=== PATIENT | female | born 1950 | race Caucasian/White ===

== ENCOUNTER 2017-03-10 14:14 | Inpatient (IN) | payer MEDICARE, OTHER ==
[~2017-03-10] VITALS: Ht 170.2 cm; Wt 86.1 kg
[~2017-03-10 14:14] MED LIST: ADVAIR DISKUS1 DS1 IH; CHILDREN'S CLEA10 MG PO; FISH OIL1 IU PO; IPRATROPIUM BROM3 M1 IH; NEURONTIN300 M1 PO; OS-CAL 500+D31 EACH PO; PROAIR HFA0.09 MG/AC IH; RT SPIRIVA INH18 MCG IH
[2017-03-10] MEDS ORDERED: PANTOPRAZOLE SO40 MG PO (14:18)
[2017-03-10] MEDS ORDERED: LEVOFLOXACIN500 M1 PO (14:19)
[2017-03-10 14:31] VITALS: BP 157/93
[2017-03-10 14:48] VITALS: BP 157/93
[2017-03-10 18:11] VITALS: BP 147/92
[2017-03-10 18:30] VITALS: BP 147/92
[2017-03-11 06:22] VITALS: BP 159/90
[2017-03-11 15:10] LABS: HEMATOCRIT 33.7 % (37.0-47.0); HEMOGLOBIN 11.2 g/dL (12.5-16.0); MEAN CELL VOLUME 88 fl (78-100); MEAN CORPUSCULAR HEMOGLOBIN 29 pg (27-31); MEAN CORPUSCULAR HGB CONC 33 g/dL (33-37); MEAN PLATELET VOLUME 8.9 fl (7.4-10.4); PLATELET COUNT 466 K/mm3 (130-400); RED BLOOD COUNT 3.85 M/mm3 (4.10-5.30); RED CELL DISTRIBUTION WIDTH 13.7 % (11.5-14.5)
[2017-03-11 15:22] LABS: BUN/CREATININE RATIO 26.6 (6.0-26.0); CALCIUM 8.8 mg/dL (8.4-10.2); POTASSIUM 4.7 mmol/L (3.6-5.0)
[2017-03-11 15:30] VITALS: BP 137/93
[2017-03-11 15:46] LABS: NEUTROPHILS 79 % (42-75); WHITE BLOOD COUNT 25.5 K/mm3 (4.8-10.8)
[2017-03-11 15:47] LABS: LYMPHOCYTE 17 % (20-51); MONOCYTE 4 % (3-10)
[2017-03-11 15:48] LABS: D-DIMER 5.78 mg/L FEU (0.15-0.50)
[2017-03-11 18:07] VITALS: BP 151/43
[2017-03-11 23:10] VITALS: BP 141/73
[2017-03-12 03:04] VITALS: BP 134/86
[2017-03-12 06:25] VITALS: BP 118/60; BP 144/91
[2017-03-12 07:03] LABS: HEMATOCRIT 33.5 % (37.0-47.0); HEMOGLOBIN 10.9 g/dL (12.5-16.0); MEAN CELL VOLUME 89 fl (78-100); MEAN CORPUSCULAR HEMOGLOBIN 29 pg (27-31); MEAN CORPUSCULAR HGB CONC 33 g/dL (33-37); MEAN PLATELET VOLUME 8.7 fl (7.4-10.4); RED BLOOD COUNT 3.78 M/mm3 (4.10-5.30); WHITE BLOOD COUNT 19.7 K/mm3 (4.8-10.8)
[2017-03-12 07:18] LABS: LYMPHOCYTE 14 % (20-51); NEUTROPHILS 84 % (42-75); PLATELET COUNT 504 K/mm3 (130-400)
[2017-03-12 07:19] LABS: METAMYELOCYTE 1 % (0-0); MONOCYTE 1 % (3-10); TARGET CELLS 1+
[2017-03-12 10:47] VITALS: BP 147/91
[2017-03-12 15:12] VITALS: BP 145/86
[2017-03-12 18:45] VITALS: BP 129/79
[2017-03-12 23:52] VITALS: BP 136/88
[2017-03-13 03:54] VITALS: BP 152/100
[2017-03-13 06:23] VITALS: BP 138/82
[2017-03-13 11:07] VITALS: BP 118/73
[2017-03-13 15:00] VITALS: BP 145/90
[2017-03-13 18:06] VITALS: BP 110/65
[2017-03-13 23:00] VITALS: BP 113/68
[2017-03-14 03:10] VITALS: BP 117/77
[2017-03-14 06:30] VITALS: BP 130/80
[2017-03-14 10:55] VITALS: BP 115/69
[2017-03-14 15:08] VITALS: BP 104/60
[2017-03-14 18:14] VITALS: BP 105/52
[2017-03-14 23:06] VITALS: BP 114/67
[2017-03-15 03:02] VITALS: BP 125/79
[2017-03-15 06:25] VITALS: BP 125/70
[2017-03-15 06:52] LABS: HEMATOCRIT 29.8 % (37.0-47.0); HEMOGLOBIN 9.8 g/dL (12.5-16.0); MEAN CELL VOLUME 88 fl (78-100); MEAN CORPUSCULAR HEMOGLOBIN 29 pg (27-31); MEAN CORPUSCULAR HGB CONC 33 g/dL (33-37); MEAN PLATELET VOLUME 8.4 fl (7.4-10.4); RED BLOOD COUNT 3.37 M/mm3 (4.10-5.30); RED CELL DISTRIBUTION WIDTH 14.2 % (11.5-14.5); WHITE BLOOD COUNT 10.8 K/mm3 (4.8-10.8)
[2017-03-15 07:04] LABS: ALBUMIN 2.7 g/dL (3.5-5.0); BUN/CREATININE RATIO 31.5 (6.0-26.0); POTASSIUM 4.3 mmol/L (3.6-5.0); TOTAL BILIRUBIN 0.5 mg/dL (0.2-1.3); TOTAL PROTEIN 5.5 g/dL (6.3-8.2)
[2017-03-15 07:09] LABS: PLATELET COUNT 556 K/mm3 (130-400)
[2017-03-15 07:11] LABS: BAND 2 % (0-10); LYMPHOCYTE 5 % (20-51); MONOCYTE 4 % (3-10); NEUTROPHILS 89 % (42-75)
[2017-03-15 11:01] VITALS: BP 131/82
[2017-03-15 15:48] VITALS: BP 109/68
[2017-03-15 18:21] VITALS: BP 111/62
[2017-03-15 23:30] VITALS: BP 109/72
[2017-03-16 03:25] VITALS: BP 127/72
[2017-03-16 06:26] VITALS: BP 126/74
[2017-03-16 11:11] VITALS: BP 111/67
[2017-03-16 15:00] VITALS: BP 102/58
[2017-03-16 18:08] VITALS: BP 133/77
[2017-03-16 22:30] VITALS: BP 95/60
[2017-03-17 03:05] VITALS: BP 121/82
[2017-03-17 06:14] VITALS: BP 144/90
[2017-03-17 11:08] VITALS: BP 109/63
[2017-03-17 14:57] VITALS: BP 105/59
[2017-03-17 17:41] VITALS: BP 105/51
[2017-03-17 23:15] VITALS: BP 111/65
[2017-03-18 03:07] VITALS: BP 111/72
[2017-03-18 06:10] VITALS: BP 115/71
[2017-03-18 11:07] VITALS: BP 128/78
[2017-03-18 13:19] LABS: BUN/CREATININE RATIO 29.7 (6.0-26.0); CALCIUM 7.9 mg/dL (8.4-10.2); POTASSIUM 4.3 mmol/L (3.6-5.0)
[2017-03-18 15:07] VITALS: BP 113/66
[2017-03-18 18:56] VITALS: BP 104/57
[2017-03-19 06:28] VITALS: BP 117/72
[2017-03-19 07:00] VITALS: BP 117/72
[2017-03-19 18:02] VITALS: BP 101/58
[2017-03-20 06:24] VITALS: BP 144/83
[2017-03-20 12:26] LABS: EOS # 0.1 (0.04-0.40); EOS % 0.3 % (1.0-5.0); HEMATOCRIT 32.6 % (37.0-47.0); HEMOGLOBIN 10.5 g/dL (12.5-16.0); LYMPH# 2.3 (1.50-4.00); MEAN CELL VOLUME 91 fl (78-100); MEAN CORPUSCULAR HEMOGLOBIN 29 pg (27-31); MEAN CORPUSCULAR HGB CONC 32 g/dL (33-37); MEAN PLATELET VOLUME 8.9 fl (7.4-10.4); MONO # 1.2 (0.20-0.80); RED BLOOD COUNT 3.59 M/mm3 (4.10-5.30); RED CELL DISTRIBUTION WIDTH 14.9 % (11.5-14.5); WHITE BLOOD COUNT 17.5 K/mm3 (4.8-10.8)
[2017-03-20 12:31] LABS: NEU # 13.8 (1.40-6.50); PLATELET COUNT 559 K/mm3 (130-400)
[2017-03-20 12:43] LABS: BUN/CREATININE RATIO 24.5 (6.0-26.0); CALCIUM 8.5 mg/dL (8.4-10.2); POTASSIUM 4.1 mmol/L (3.6-5.0)
[2017-03-20 18:56] VITALS: BP 97/54
[2017-03-21 06:47] VITALS: BP 117/75
[2017-03-21 18:18] VITALS: BP 102/53
[2017-03-22 06:35] VITALS: BP 128/59
[2017-03-22 18:38] VITALS: BP 98/63
[2017-03-23 06:04] VITALS: BP 115/75
[2017-03-23 18:42] VITALS: BP 101/56
[2017-03-24 06:30] VITALS: BP 120/78
[2017-03-24 18:18] VITALS: BP 96/60
[2017-03-25 06:22] VITALS: BP 122/75
[2017-03-25 12:11] LABS: HEMOGLOBIN 9.7 g/dL (12.5-16.0); MEAN CELL VOLUME 92 fl (78-100); MEAN CORPUSCULAR HEMOGLOBIN 29 pg (27-31); MEAN CORPUSCULAR HGB CONC 31 g/dL (33-37); MEAN PLATELET VOLUME 9.4 fl (7.4-10.4); PLATELET COUNT 305 K/mm3 (130-400); RED BLOOD COUNT 3.37 M/mm3 (4.10-5.30); RED CELL DISTRIBUTION WIDTH 15.3 % (11.5-14.5); WHITE BLOOD COUNT 12.4 K/mm3 (4.8-10.8)
[2017-03-25 12:25] LABS: BUN/CREATININE RATIO 24.6 (6.0-26.0); CALCIUM 8.5 mg/dL (8.4-10.2)
[2017-03-25 12:52] LABS: LYMPHOCYTE 8 % (20-51); MONOCYTE 6 % (3-10); NEUTROPHILS 85 % (42-75)
[2017-03-25 17:55] VITALS: BP 90/50
[2017-03-26 06:24] VITALS: BP 131/83
[2017-03-26] MEDS ORDERED: PREDNISONE10 MG PO (12:44)
[2017-03-26 18:38] VITALS: BP 117/63
[2017-03-27 06:25] VITALS: BP 116/75
[2017-03-27 15:51] VITALS: BP 100/60
== END 2017-03-27 15:59 | disposition home health service (06) | DRG 195 ==
LOC: MED/SURG 14:14
PROVIDERS: Nurse Practitioner Family; Nurse Practitioner Primary Care; Physician Assistant; ADMIT Family Medicine
PROC: 02HV33Z Insertion of Infusion Device into Superior Vena Cava, Percutaneous Approach (ICD-10-PCS; principal; 2017-03-12)
DX: J18.9 Pneumonia, unspecified organism (principal); G62.9 Polyneuropathy, unspecified; R09.02 Hypoxemia; K44.9 Diaphragmatic hernia without obstruction or gangrene; R53.83 Other fatigue; J43.9 Emphysema, unspecified; Z23 Encounter for immunization
CPT/HCPCS: A4500; J1644; J1650; J1940; J2543; J2930; J3370; J7030; J7050; J7512; Q9967

== ENCOUNTER → 2017-04-02 | Outpatient (CLI) | payer MEDICARE, OTHER ==
[~2017-04-02] VITALS: Ht 170.2 cm; Wt 86.1 kg
[~2017-04-02] MED LIST changes: +LEVOFLOXACIN500 M1 PO; +PANTOPRAZOLE SO40 MG PO; +PREDNISONE10 MG PO
[2017-04-02 11:20] VITALS: BP 153/87
== END ==
LOC: AMSURD 11:15
DX: Z45.2 Encounter for adjustment and management of vascular access device (principal); J18.9 Pneumonia, unspecified organism

== ENCOUNTER 2017-04-13 21:43 | Emergency (ER) | payer OTHER ==
[~2017-04-13] VITALS: Ht 170.2 cm; Wt 84.5 kg
[2017-04-13] MEDS ORDERED: FLONASE ALLERG9.9 ML NS (22:05)
[2017-04-13] MEDS ORDERED: PREDNISONE20 M1 PO (22:23)
[2017-04-13 22:31] VITALS: BP 110/74
== END 2017-04-13 22:31 | disposition home or self-care (01) ==
LOC: ED 21:43
DX: L50.9 Urticaria, unspecified (principal); J44.9 Chronic obstructive pulmonary disease, unspecified; Z87.891 Personal history of nicotine dependence; Z87.01 Personal history of pneumonia (recurrent); Z88.1 Allergy status to other antibiotic agents; Z88.2 Allergy status to sulfonamides

== ENCOUNTER → 2017-08-24 | Outpatient (CLI) | payer MEDICARE, BC ==
[~2017-08-24] VITALS: Ht 170.2 cm; Wt 81.4 kg
[~2017-08-24] MED LIST changes: +AZITHROMYCIN500 M2 PO; +FLONASE ALLERG9.9 ML NS; +PREDNISONE20 M1 PO
[2017-08-24 19:25] VITALS: BP 143/86
--- NOTE | 2017-08-24 19:35 | NUR ---
Pt returns to clinic to see provider post EKG as planned (returns per w/c). EKG sent w/ pt.
== END ==
LOC: AMSURD 18:58
DX: R07.9 Chest pain, unspecified (principal)

== ENCOUNTER 2018-09-14 16:53 | Emergency (ER) | payer MEDICARE, BC ==
[~2018-09-14] VITALS: Ht 167.6 cm; Wt 84.1 kg
[2018-09-14] MEDS ORDERED: LYRICA100 MG PO (17:15)
[2018-09-14 17:16] LABS: EOS # 0.1 (0.04-0.40); EOS % 1.1 % (1.0-5.0); HEMATOCRIT 42.2 % (37.0-47.0); LYMPH# 1.9 (1.50-4.00); MEAN CELL VOLUME 92 fl (78-100); MEAN CORPUSCULAR HEMOGLOBIN 28 pg (27-31); MEAN CORPUSCULAR HGB CONC 31 g/dL (33-37); MEAN PLATELET VOLUME 10.2 fl (7.4-10.4); MONO # 0.9 (0.20-0.80); NEU # 8.8 (1.40-6.50); PLATELET COUNT 330 K/mm3 (130-400); RED CELL DISTRIBUTION WIDTH 14.3 % (11.5-14.5); WHITE BLOOD COUNT 11.8 K/mm3 (4.8-10.8)
[2018-09-14] MEDS ORDERED: PERFOROMIS20 MCG/21 IH (17:17)
[2018-09-14] MEDS ORDERED: QUALITY CHOICE600 M1 PO (17:18)
[2018-09-14] MEDS ORDERED: ONCE DAILY1 TA1 PO (17:19)
[2018-09-14 17:43] LABS: ALBUMIN 4.1 g/dL (3.4-4.8); ALT/SGPT 17 U/L (0-55); AST-SGOT 25 U/L (5-34); CALCIUM 9.7 mg/dL (8.4-10.2); CARBON DIOXIDE 23 mmol/L (23-31); GLUCOSE 113 mg/dL (65-105); SODIUM 138 mmol/L (136-145); TOTAL BILIRUBIN 0.3 mg/dL (0.2-1.2); TOTAL PROTEIN 7.5 g/dL (6.2-8.1)
[2018-09-14 17:45] LABS: TROPONIN-I < 0.03 ng/mL (<0.030)
[2018-09-14] MEDS ORDERED: LEVAQUIN 5500 MG/TA1 PO (18:32)
[2018-09-14] MEDS ORDERED: PREDNISONE20 M1 PO (18:32)
[2018-09-14 19:26] VITALS: BP 147/90
== END 2018-09-14 19:26 | disposition home or self-care (01) ==
LOC: ED 16:53
PROVIDERS: Family Medicine
DX: J44.1 Chronic obstructive pulmonary disease with (acute) exacerbation (principal); K21.9 Gastro-esophageal reflux disease without esophagitis; G62.9 Polyneuropathy, unspecified; Z79.51 Long term (current) use of inhaled steroids; Z87.01 Personal history of pneumonia (recurrent)
CPT/HCPCS: J7512

== ENCOUNTER 2018-09-14 20:40 | Inpatient (IN) | payer MEDICARE, BC ==
[~2018-09-14] VITALS: Ht 167.6 cm; Wt 84.8 kg
[~2018-09-14 20:40] MED LIST changes: +LEVAQUIN 5500 MG/TA1 PO; +LYRICA100 MG PO; +ONCE DAILY1 TA1 PO; +PERFOROMIS20 MCG/21 IH; +QUALITY CHOICE600 M1 PO
[2018-09-14 21:01] VITALS: BP 160/100
[2018-09-14 21:30] VITALS: BP 134/87
[2018-09-14 22:10] VITALS: BP 134/87
[2018-09-14 22:56] VITALS: BP 139/77
[2018-09-14 23:00] VITALS: BP 139/77
[2018-09-15 00:02] VITALS: BP 139/77
[2018-09-15 00:37] VITALS: BP 164/90
[2018-09-15 01:07] LABS: D-DIMER 0.67 mg/L FEU (0.15-0.50)
[2018-09-15 02:10] VITALS: BP 142/82
[2018-09-15 06:20] VITALS: BP 161/103
[2018-09-15 07:30] LABS: HEMATOCRIT 39.4 % (37.0-47.0); HEMOGLOBIN 12.2 g/dL (12.5-16.0); MEAN CELL VOLUME 92 fl (78-100); MEAN CORPUSCULAR HEMOGLOBIN 29 pg (27-31); MEAN CORPUSCULAR HGB CONC 31 g/dL (33-37); MEAN PLATELET VOLUME 10.2 fl (7.4-10.4); PLATELET COUNT 351 K/mm3 (130-400); RED BLOOD COUNT 4.27 M/mm3 (4.10-5.30)
[2018-09-15 07:48] LABS: BAND 4 % (0-10); LYMPHOCYTE 4 % (20-51); MONOCYTE 2 % (3-10); NEUTROPHILS 90 % (42-75)
[2018-09-15 07:59] LABS: POTASSIUM 5.2 mmol/L (3.5-5.1); TROPONIN-I 0.07 ng/mL (<0.030)
[2018-09-15 08:42] LABS: URINE APPEARANCE CLEAR; URINE BILIRUBIN NEGATIVE (NEGATIVE); URINE BLOOD 50 ery/uL (NEGATIVE); URINE COLOR YELLOW; URINE GLUCOSE NEGATIVE (NEGATIVE); URINE KETONE SMALL (NEGATIVE); URINE LEUKOCYTE ESTERASE NEGATIVE (NEGATIVE); URINE MUCUS PRESENT (NOT PRESENT); URINE NITRATE NEGATIVE (NEGATIVE); URINE PROTEIN(semi-quant) 1+ mg/dL (NEGATIVE); URINE UROBILINOGEN NORMAL (NORMAL); URINE WBC 0-1 /hpf (0-3)
[2018-09-15 09:16] VITALS: BP 157/78
[2018-09-15 10:51] VITALS: BP 155/94
== END 2018-09-15 11:27 | disposition short-term general hospital (02) | DRG 192 ==
LOC: MED/SURG 20:40
PROVIDERS: Nurse Practitioner; ADMIT Family Medicine
DX: J43.9 Emphysema, unspecified (principal); Z87.891 Personal history of nicotine dependence; K21.9 Gastro-esophageal reflux disease without esophagitis; G62.9 Polyneuropathy, unspecified
CPT/HCPCS: J1650; J2060; J2930; J3010; J7030; Q9967

== ENCOUNTER 2018-09-18 15:58 | Inpatient (IN) | payer MEDICARE, BC ==
[~2018-09-18] VITALS: Ht 167.6 cm; Wt 83.3 kg
[2018-09-20] MEDS ORDERED: ESCITALOPRAM5 MG PO (14:50)
[2018-09-20] MEDS ORDERED: FUROSEMIDE20 MG PO (14:50)
[2018-09-20] MEDS ORDERED: TOPCARE ASPIRIN81 M1 PO (14:50)
[2018-09-20] MEDS ORDERED: LEVAQUIN 750MG750 M1 PO (14:51)
[2018-09-20] MEDS ORDERED: PREDNISONE1 MG PO (14:52)
[2018-09-20] MEDS ORDERED: BUDESONIDE0.5 MG/2 M IH (14:54)
[2018-09-20] MEDS ORDERED: IPRATROPIUM BROM3 M1 IH (14:54)
[2018-09-20] MEDS ORDERED: GABAPENTIN TAB600 MG PO (14:56)
[2018-09-20] MEDS ORDERED: TYLENOL COLD MU PO (14:57)
[2018-09-20 17:06] VITALS: BP 124/80
[2018-09-20 17:08] VITALS: BP 124/80
[2018-09-20 18:10] VITALS: BP 122/76
[2018-09-21 01:12] LABS: URINE APPEARANCE CLEAR; URINE BILIRUBIN NEGATIVE (NEGATIVE); URINE BLOOD NEGATIVE (NEGATIVE); URINE COLOR YELLOW; URINE GLUCOSE NEGATIVE (NEGATIVE); URINE KETONE NEGATIVE (NEGATIVE); URINE LEUKOCYTE ESTERASE NEGATIVE (NEGATIVE); URINE NITRATE NEGATIVE (NEGATIVE); URINE PROTEIN(semi-quant) NEGATIVE (NEGATIVE); URINE UROBILINOGEN NORMAL (NORMAL); URINE WBC 0-1 /hpf (0-3)
[2018-09-21 05:44] VITALS: BP 120/72
[2018-09-21 07:22] LABS: EOS # 0.1 (0.04-0.40); EOS % 0.6 % (1.0-5.0); HEMATOCRIT 36.3 % (37.0-47.0); MEAN CELL VOLUME 93 fl (78-100); MEAN CORPUSCULAR HEMOGLOBIN 28 pg (27-31); MEAN CORPUSCULAR HGB CONC 30 g/dL (33-37); MEAN PLATELET VOLUME 9.3 fl (7.4-10.4); MONO # 0.8 (0.20-0.80); NEU # 4.1 (1.40-6.50); PLATELET COUNT 307 K/mm3 (130-400); RED CELL DISTRIBUTION WIDTH 14.2 % (11.5-14.5); WHITE BLOOD COUNT 9.9 K/mm3 (4.8-10.8)
[2018-09-21 07:46] LABS: ALBUMIN 3.3 g/dL (3.4-4.8); CALCIUM 8.7 mg/dL (8.3-10.5); LYMPH# 4.8 (1.50-4.00); POTASSIUM 3.9 mmol/L (3.5-5.1); TOTAL BILIRUBIN 0.2 mg/dL (0.2-1.2); TOTAL PROTEIN 5.8 g/dL (6.2-8.1)
[2018-09-21 18:20] VITALS: BP 120/65
[2018-09-22 06:06] VITALS: BP 122/70
[2018-09-22 18:26] VITALS: BP 109/91
[2018-09-23 03:46] VITALS: BP 141/77
[2018-09-23 18:14] VITALS: BP 117/63
[2018-09-24 06:01] VITALS: BP 130/68
[2018-09-24 18:19] VITALS: BP 110/63
[2018-09-25 06:03] VITALS: BP 114/66
[2018-09-25 18:09] VITALS: BP 125/62
[2018-09-26 06:11] VITALS: BP 121/72
[2018-09-26 18:48] VITALS: BP 135/79
[2018-09-27 06:07] VITALS: BP 122/75
[2018-09-27 18:40] VITALS: BP 123/73
[2018-09-28 06:27] VITALS: BP 120/71
[2018-09-28 18:00] VITALS: BP 101/73
[2018-09-29 06:31] VITALS: BP 100/60
[2018-09-29 08:50] VITALS: BP 103/68
[2018-09-29 18:45] VITALS: BP 98/58
[2018-09-30 06:08] VITALS: BP 104/61
[2018-09-30 17:54] VITALS: BP 100/65
[2018-10-01 05:36] VITALS: BP 108/67
[2018-10-01] MEDS ORDERED: MUCUS RELIEF400 M1 PO (09:40)
[2018-10-01] MEDS ORDERED: CETIRIZINE HYDR10 M1 PO (09:43)
[2018-10-01] MEDS ORDERED: LEXAPRO5 MG PO (09:59)
== END 2018-10-01 12:18 | disposition home or self-care (01) | DRG 947 ==
LOC: MED/SURG 15:58
PROVIDERS: Physician Assistant; ADMIT Nurse Practitioner Primary Care
DX: R53.81 Other malaise (principal); J12.89 Other viral pneumonia; J96.01 Acute respiratory failure with hypoxia; J44.0 Chronic obstructive pulmonary disease with (acute) lower respiratory infection; J44.1 Chronic obstructive pulmonary disease with (acute) exacerbation; Z99.81 Dependence on supplemental oxygen; K21.9 Gastro-esophageal reflux disease without esophagitis; Z88.6 Allergy status to analgesic agent; Z88.1 Allergy status to other antibiotic agents; Z88.2 Allergy status to sulfonamides; Z87.891 Personal history of nicotine dependence; G62.9 Polyneuropathy, unspecified; K59.00 Constipation, unspecified; J30.2 Other seasonal allergic rhinitis
CPT/HCPCS: J1650; J7512

== ENCOUNTER 2019-05-22 14:00 | Outpatient (RCR) | payer MEDICARE, BC ==
[~2019-05-22 14:00] MED LIST changes: +BUDESONIDE0.5 MG/2 M IH; +CETIRIZINE HYDR10 M1 PO; +ESCITALOPRAM5 MG PO; +FUROSEMIDE20 MG PO; +GABAPENTIN TAB600 MG PO; +LEVAQUIN 750MG750 M1 PO; +LEXAPRO5 MG PO; +MUCUS RELIEF400 M1 PO; +PREDNISONE1 MG PO; +TOPCARE ASPIRIN81 M1 PO; +TYLENOL COLD MU PO
== END 2019-05-22 14:30 | disposition still patient (30) ==
LOC: PT 14:00
DX: M19.071 Primary osteoarthritis, right ankle and foot (principal); M76.821 Posterior tibial tendinitis, right leg; G62.9 Polyneuropathy, unspecified

== ENCOUNTER 2022-06-20 07:54 | Outpatient (RCR) | payer MEDICARE, BC | END 2022-07-20 | disposition home or self-care (01) | LOC: PT | DX: M54.50 Low back pain, unspecified (principal) ==

== ENCOUNTER 2023-06-06 13:41 | Outpatient (RCR) | payer MEDICARE, BC | END 2023-06-20 | disposition home or self-care (01) | LOC: PT | DX: M17.0 Bilateral primary osteoarthritis of knee (principal) ==